=== PATIENT | male | born 1935 ===

== ENCOUNTER 2019-12-27 18:30 | Inpatient (IN) ==
[2019-12-27] MEDS ORDERED: Ondansetron 4 mg VIAL 2 MG/ML 2 ml VIAL IV PRN (20:43)
[2019-12-27] MEDS ORDERED: Enoxaparin 40 MG/0.4 ML SYR(*) SUBCUT SCH (21:00)
[2019-12-27] MEDS: oxyCODONE/Acetamin 5/325 mg TAB PO PRN (22:00)
[2019-12-27] MEDS: NS 0.9% 1000 ml BAG 1,000 ML IV SCH (23:16)
[2019-12-28] MEDS: oxyCODONE/Acetamin 5/325 mg TAB PO PRN (03:58)
[2019-12-28 05:46] LABS: Activated Partial Thrombo Time 34.4 seconds (26.0-38.0); INR 1.24 (0.82-1.09)
[2019-12-28 05:50] LABS: Hematocrit 36 % (42-52); Hemoglobin 12.1 g/dL (14.0-18.0); Mean Corpuscular HGB Conc 34 g/dL (31-36); Mean Corpuscular Hemoglobin 30 pg (27-31); Mean Corpuscular Volume 88 fL (80-94); Red Blood Count 4.07 10^6 /uL (4.18-5.48); Red Cell Distribution Width 14 % (10-15); White Blood Count 5.9 10^3/uL (3.5-10.8)
[2019-12-28 05:51] LABS: ABS Lymphocytes 0.5 10^3/ul (1.0-4.8); ABS Monocytes 0.7 10^3/ul (0-0.8); Eosinophil % 0.1 %; Lymphocyte % 8.5 %; Nucleated Red Blood Cells % 0.1
[2019-12-28 05:56] LABS: BUN/Creatinine Ratio 17.6 (8-20); Calcium 8.5 mg/dL (8.6-10.3); EGFR African American 63.1 (>60); EGFR Non-African American 52.1 (>60); Potassium 4.3 mmol/L (3.5-5.0)
[2019-12-28 08:50] LABS: Platelet Count 98 10^3/uL (150-450)
[2019-12-28] MEDS: Albuterol HFA INHALER 8 gm MDI INH PRN ×2 (09:13→23:31)
[2019-12-28] MEDS: NS 0.9% 1000 ml BAG 1,000 ML IV SCH (09:25)
[2019-12-28] MEDS: Albuterol 2.5mg/3 ml (0.083%) NEB.SOLN INH PRN (11:38)
[2019-12-28] MEDS ORDERED: methylPREDNISolone SOD 40 mg/ml 1 ml VIAL IV ONE (12:00)
[2019-12-28] MEDS ORDERED: Midazolam 2 mg/2 ml VIAL 1 mg/ml 2 ml VIAL (2 mg) ONE (15:56)
[2019-12-28] MEDS ORDERED: ceFAZolin 2 GM PREMIX in ORs 2 GM/50 ML BAG ONE (16:01)
[2019-12-28] MEDS ORDERED: fentaNYL 250 mcg/5 ml 50 MCG/ML 5 ml VIAL (250 MCG) ONE (16:20)
[2019-12-28] MEDS ORDERED: Phenylephrine IV 10 MG/ML 1 ml VIAL ONE (16:52)
[2019-12-28] MEDS ORDERED: fentaNYL 100 mcg/2 ml 50 MCG/ML VIAL ONE (17:39)
[2019-12-28] MEDS ORDERED: Naloxone 0.4 mg VIAL 0.4 mg/ml 1 ml VIAL IV PRN (18:02)
[2019-12-28] MEDS ORDERED: fentaNYL 100 mcg/2 ml 50 MCG/ML VIAL IV PRN (18:02)
[2019-12-28] MEDS: Mometasone/Formoter 200/5 MDI INH SCH (20:27)
[2019-12-29] MEDS: ceFAZolin 1 GM* X 3 DOSES POST-OP Q8H (AddVan) IVPB SCH ×3 (01:41→16:53)
[2019-12-29] MEDS: NS 0.9% 1000 ml BAG 1,000 ML IV SCH (05:51)
[2019-12-29 06:20] LABS: Hematocrit 27 % (42-52); Hemoglobin 9.5 g/dL (14.0-18.0); Mean Platelet Volume 8.8 fL (7.4-10.4); Platelet Count 84 10^3/uL (150-450)
[2019-12-29 06:32] LABS: BUN/Creatinine Ratio 17.9 (8-20); Calcium 7.9 mg/dL (8.6-10.3); EGFR African American 42.6 (>60); EGFR Non-African American 35.2 (>60)
[2019-12-29] MEDS: Mometasone/Formoter 200/5 MDI INH SCH ×2 (10:24→19:16)
[2019-12-29] MEDS ORDERED: Enoxaparin 30 MG/0.3 ML SYR(*) SUBCUT SCH (12:00)
[2019-12-29] MEDS ORDERED: Enoxaparin 40 MG/0.4 ML SYR(*) SUBCUT SCH (12:00)
[2019-12-29] MEDS: Albuterol 2.5mg/3 ml (0.083%) NEB.SOLN INH PRN (14:48)
[2019-12-29] MEDS: Senna TAB 8.6 mg TAB PO PRN (21:18)
[2019-12-29] MEDS: Polyethylene Glycol 3350 17 GM PACKET PO PRN (21:18)
[2019-12-30 05:47] LABS: BUN/Creatinine Ratio 22.1 (8-20); Calcium 8.2 mg/dL (8.6-10.3); EGFR African American 37.8 (>60); EGFR Non-African American 31.3 (>60); Potassium 4.7 mmol/L (3.5-5.0)
[2019-12-30 06:24] LABS: Hematocrit 22 % (42-52); Hemoglobin 7.3 g/dL (14.0-18.0); Mean Platelet Volume 9.6 fL (7.4-10.4); Platelet Count 75 10^3/uL (150-450)
[2019-12-30] MEDS: Polyethylene Glycol 3350 17 GM PACKET PO PRN (09:24)
[2019-12-30] MEDS: Mometasone/Formoter 200/5 MDI INH SCH ×3 (09:30→19:02)
[2019-12-30] MEDS: NS 0.9% 1000 ml BAG 1,000 ML IV SCH ×2 (09:30→19:25)
[2019-12-30] MEDS ORDERED: Dextrose 50% Syringe 50 ml 25 GM/50 ML SYRINGE IV PUSH PRN (14:50)
[2019-12-30 16:07] LABS: Hematocrit 21 % (42-52); Hemoglobin 7.1 g/dL (14.0-18.0)
[2019-12-30 17:48] LABS: Urine Appearance Cloudy; Urine Bilirubin Negative (Negative); Urine Blood 2+ (Negative); Urine Color Yellow; Urine Glucose 2+(150 mg/dL) (Negative); Urine Ketones Negative (Negative); Urine Nitrite Negative (Negative); Urine Protein Negative (Negative); Urine Specific Gravity 1.015 (1.010-1.030); Urine Urobilinogen Negative (Negative)
[2019-12-30 17:51] LABS: Urine Bacteria 1+ (Absent); Urine Red Blood Cell 3+(>10/hpf) (Absent); Urine White Blood Cell Trace(0-5/hpf) (Absent)
[2019-12-30] MEDS: Insulin LISPRO 100 units/ml(*) SUBCUT SCH ×2 (18:22→20:59)
[2019-12-30] MEDS: Senna TAB 8.6 mg TAB PO PRN (21:00)
[2019-12-31] MEDS: oxyCODONE/Acetamin 5/325 mg TAB PO PRN ×3 (03:46→18:53)
[2019-12-31 05:53] LABS: ABS Lymphocytes 0.4 10^3/ul (1.0-4.8); ABS Monocytes 0.9 10^3/ul (0-0.8); Hematocrit 19 % (42-52); Hemoglobin 6.6 g/dL (14.0-18.0); Lymphocyte % 5.1 %; Mean Corpuscular HGB Conc 35 g/dL (31-36); Mean Corpuscular Hemoglobin 31 pg (27-31); Mean Corpuscular Volume 90 fL (80-94); Red Cell Distribution Width 15 % (10-15); White Blood Count 7.1 10^3/uL (3.5-10.8)
[2019-12-31 06:01] LABS: BUN/Creatinine Ratio 27.3 (8-20); Blood Urea Nitrogen 42 mg/dL (6-24); CO2 Carbon Dioxide 31 mmol/L (22-32); Calcium 8.3 mg/dL (8.6-10.3); EGFR African American 52.3 (>60); EGFR Non-African American 43.3 (>60); Glucose 115 mg/dL (70-100); Potassium 4.6 mmol/L (3.5-5.0); Sodium 144 mmol/L (135-145)
[2019-12-31 06:02] LABS: Anion Gap 1 mmol/L (2-11); Chloride 112 mmol/L (101-111)
[2019-12-31 06:43] LABS: Mean Platelet Volume 8.7 fL (7.4-10.4); Platelet Count 92 10^3/uL (150-450)
[2019-12-31] MEDS: Mometasone/Formoter 200/5 MDI INH SCH ×2 (08:02→19:33)
[2019-12-31 09:46] LABS: % Iron Saturation 16 % (15-55); Iron 38 ug/dL (50-212); LDH 213 U/L (140-271); Total Iron Binding Capacity 231 mcg/dL (250-450); Transferrin 165 mg/dL (203-362)
[2019-12-31 10:08] LABS: Ferritin 175.3 ng/mL (24-336)
[2019-12-31] MEDS: Insulin LISPRO 100 units/ml(*) SUBCUT SCH ×5 (10:10→22:03)
[2019-12-31 10:12] LABS: Folate 14.58 ng/mL (>3.99)
[2019-12-31] MEDS: Albuterol HFA INHALER 8 gm MDI INH PRN (10:16)
[2019-12-31 16:14] LABS: Hematocrit 23 % (42-52); Hemoglobin 7.9 g/dL (14.0-18.0)
[2019-12-31] MEDS ORDERED: Furosemide 20 mg/2 ml IV VIAL IV SLOW PU ONE (18:11)
[2020-01-01] MEDS: oxyCODONE/Acetamin 5/325 mg TAB PO PRN ×2 (05:49→11:07)
[2020-01-01] MEDS: Senna TAB 8.6 mg TAB PO PRN (06:16)
[2020-01-01] MEDS: Morphine 2 MG/ML SYRINGE IV PRN (06:16)
[2020-01-01] MEDS: Polyethylene Glycol 3350 17 GM PACKET PO PRN (06:18)
[2020-01-01 06:36] LABS: Hematocrit 28 % (42-52); Hemoglobin 9.6 g/dL (14.0-18.0); Lymphocyte % 11.4 %; Mean Corpuscular HGB Conc 34 g/dL (31-36); Mean Corpuscular Hemoglobin 31 pg (27-31); Mean Corpuscular Volume 89 fL (80-94); Mean Platelet Volume 8.9 fL (7.4-10.4); Platelet Count 122 10^3/uL (150-450); Red Blood Count 3.12 10^6 /uL (4.18-5.48); Red Cell Distribution Width 15 % (10-15); White Blood Count 8.6 10^3/uL (3.5-10.8)
[2020-01-01 06:48] LABS: BUN/Creatinine Ratio 28.2 (8-20); EGFR African American 54.4 (>60); EGFR Non-African American 44.9 (>60); Potassium 4.1 mmol/L (3.5-5.0)
[2020-01-01] MEDS ORDERED: Cyanocobalamin INJ 1,000 MCG/ML VIAL 1 ML VIAL IM ONE (07:22)
[2020-01-01] MEDS: Mometasone/Formoter 200/5 MDI INH SCH ×2 (07:37→22:35)
[2020-01-01] MEDS: Albuterol HFA INHALER 8 gm MDI INH PRN (07:38)
[2020-01-01] MEDS: Insulin LISPRO 100 units/ml(*) SUBCUT SCH ×4 (08:00→21:20)
[2020-01-01] MEDS ORDERED: Perflutren Lipid Microsphere 3 ML VIAL ONE (09:28)
[2020-01-02 06:33] LABS: BUN/Creatinine Ratio 32.4 (8-20); Calcium 8.8 mg/dL (8.6-10.3); EGFR African American 58.9 (>60); EGFR Non-African American 48.7 (>60); Potassium 4.6 mmol/L (3.5-5.0)
[2020-01-02 07:16] LABS: Hematocrit 25 % (42-52); Hemoglobin 8.9 g/dL (14.0-18.0)
[2020-01-02] MEDS: Insulin LISPRO 100 units/ml(*) SUBCUT SCH ×4 (07:17→22:08)
[2020-01-02] MEDS: Mometasone/Formoter 200/5 MDI INH SCH ×2 (07:57→19:29)
[2020-01-02] MEDS: oxyCODONE/Acetamin 5/325 mg TAB PO PRN ×2 (07:58→11:50)
[2020-01-02] MEDS ORDERED: fentaNYL 100 mcg/2 ml 50 MCG/ML VIAL ONE (12:53)
[2020-01-02] MEDS ORDERED: Midazolam 10 mg/10 ml VIAL 1 mg/ml 10 ml VIAL (10 mg) ONE (12:54)
[2020-01-02] MEDS: Albuterol HFA INHALER 8 gm MDI INH PRN (19:30)
[2020-01-03] MEDS: oxyCODONE/Acetamin 5/325 mg TAB PO PRN ×2 (04:11→13:25)
[2020-01-03] MEDS: Insulin LISPRO 100 units/ml(*) SUBCUT SCH ×4 (07:50→21:23)
[2020-01-03] MEDS: Mometasone/Formoter 200/5 MDI INH SCH ×2 (07:51→19:45)
[2020-01-03] MEDS: Morphine 2 MG/ML SYRINGE IV PRN (07:59)
[2020-01-04] MEDS: oxyCODONE/Acetamin 5/325 mg TAB PO PRN ×2 (04:20→14:55)
[2020-01-04 05:26] LABS: ABS Eosinophils 0.1 10^3/ul (0-0.6); ABS Lymphocytes 0.4 10^3/ul (1.0-4.8); ABS Monocytes 1.1 10^3/ul (0-0.8); Hematocrit 28 % (42-52); Hemoglobin 9.4 g/dL (14.0-18.0); Mean Corpuscular HGB Conc 34 g/dL (31-36); Mean Corpuscular Hemoglobin 31 pg (27-31); Mean Corpuscular Volume 91 fL (80-94); Mean Platelet Volume 8.5 fL (7.4-10.4); Platelet Count 154 10^3/uL (150-450); Red Blood Count 3.06 10^6 /uL (4.18-5.48); Red Cell Distribution Width 14 % (10-15); White Blood Count 8.8 10^3/uL (3.5-10.8)
[2020-01-04 05:42] LABS: BUN/Creatinine Ratio 34.6 (8-20); Calcium 8.8 mg/dL (8.6-10.3); EGFR African American 65.4 (>60); Potassium 4.4 mmol/L (3.5-5.0)
[2020-01-04] MEDS: Insulin LISPRO 100 units/ml(*) SUBCUT SCH ×4 (07:47→22:02)
[2020-01-04] MEDS: Polyethylene Glycol 3350 17 GM PACKET PO PRN (08:26)
[2020-01-04] MEDS: Mometasone/Formoter 200/5 MDI INH SCH ×2 (08:27→20:42)
[2020-01-04] MEDS: Senna TAB 8.6 mg TAB PO PRN (08:41)
[2020-01-04] MEDS: Enoxaparin 30 MG/0.3 ML SYR(*) SUBCUT SCH (14:52)
[2020-01-04] MEDS ORDERED: Furosemide 20 mg/2 ml IV VIAL IV SLOW PU ONE (16:20)
[2020-01-04] MEDS: Albuterol/Ipratropium NEB.SOL (2.5/0.5 MG) 3 ML NEB.SOLN INH SCH ×2 (18:59→20:42)
[2020-01-05] MEDS: Albuterol/Ipratropium NEB.SOL (2.5/0.5 MG) 3 ML NEB.SOLN INH SCH ×4 (00:12→11:13)
[2020-01-05] MEDS: oxyCODONE/Acetamin 5/325 mg TAB PO PRN ×2 (05:50→10:00)
[2020-01-05 06:05] LABS: ABS Eosinophils 0.1 10^3/ul (0-0.6); ABS Lymphocytes 0.6 10^3/ul (1.0-4.8); ABS Monocytes 1.1 10^3/ul (0-0.8); Eosinophil % 0.8 %; Hematocrit 30 % (42-52); Hemoglobin 10.1 g/dL (14.0-18.0); Lymphocyte % 6.2 %; Mean Corpuscular HGB Conc 34 g/dL (31-36); Mean Corpuscular Hemoglobin 31 pg (27-31); Mean Corpuscular Volume 91 fL (80-94); Mean Platelet Volume 8.6 fL (7.4-10.4); Nucleated Red Blood Cells % 0.1; Platelet Count 175 10^3/uL (150-450); Red Blood Count 3.26 10^6 /uL (4.18-5.48); Red Cell Distribution Width 15 % (10-15); White Blood Count 9.9 10^3/uL (3.5-10.8)
[2020-01-05 06:22] LABS: Calcium 8.9 mg/dL (8.6-10.3); EGFR African American 44.9 (>60); EGFR Non-African American 37.1 (>60); Potassium 4.6 mmol/L (3.5-5.0)
[2020-01-05] MEDS: Mometasone/Formoter 200/5 MDI INH SCH ×2 (07:46→20:08)
[2020-01-05] MEDS: Insulin LISPRO 100 units/ml(*) SUBCUT SCH ×4 (08:45→21:33)
[2020-01-05 12:08] LABS: Magnesium 2.1 mg/dL (1.9-2.7)
[2020-01-05 12:19] LABS: Hematocrit 29 % (42-52); Hemoglobin 9.6 g/dL (14.0-18.0); Mean Corpuscular HGB Conc 33 g/dL (31-36); Mean Corpuscular Hemoglobin 30 pg (27-31); Mean Corpuscular Volume 92 fL (80-94); Mean Platelet Volume 8.6 fL (7.4-10.4); Platelet Count 184 10^3/uL (150-450); Red Blood Count 3.16 10^6 /uL (4.18-5.48); Red Cell Distribution Width 15 % (10-15); White Blood Count 15.7 10^3/uL (3.5-10.8)
[2020-01-05 13:23] LABS: ABS Basophils 0.1 10^3/ul (0-0.2); ABS Lymphocytes 0.3 10^3/ul (1.0-4.8); ABS Monocytes 1.3 10^3/ul (0-0.8); Eosinophil % 0.1 %; Lymphocyte % 2.1 %
[2020-01-05] MEDS ORDERED: NS 0.9% 1000 ml BAG 1,000 ML IV ONE (13:23)
[2020-01-05 14:21] LABS: Albumin 3.4 g/dL (3.2-5.2); Albumin/Globulin Ratio 1.5 (1-3); Globulin 2.3 g/dL (2-4); Indirect Bilirubin 2.4 mg/dL (0.3-1.0); Total Bilirubin 2.9 mg/dL (0.2-1.0); Total Protein 5.7 g/dL (6.4-8.9)
[2020-01-05] MEDS ORDERED: Albuterol/Ipratropium NEB.SOL (2.5/0.5 MG) 3 ML NEB.SOLN INH PRN (14:33)
[2020-01-05] MEDS: Enoxaparin 30 MG/0.3 ML SYR(*) SUBCUT SCH (15:22)
[2020-01-05] MEDS ORDERED: Heparin DRIP 25,000 UNITS(*) 25,000 UNITS/500 ML BAG IV SCH (15:30)
[2020-01-05] MEDS ORDERED: Piperacillin/Tazobac ADVAN(*) 3.375 GM in NS 0.9% 100 ml BAG 100 ML IVPB ONE (15:39)
[2020-01-05] MEDS ORDERED: Zosyn per Pharmacy NOTE FOLLOW UP SCH (16:00)
[2020-01-05] MEDS ORDERED: Heparin 5000 UNITS/ML VIAL(*) 1 ml vial IV SCH (16:00)
[2020-01-05 17:08] LABS: Urine Appearance Clear; Urine Bilirubin Negative (Negative); Urine Blood 1+ (Negative); Urine Color Yellow; Urine Glucose 1+(50 mg/dL) (Negative); Urine Ketones Negative (Negative); Urine Nitrite Negative (Negative); Urine Protein Negative (Negative); Urine Specific Gravity 1.014 (1.010-1.030); Urine Urobilinogen Positive (Negative)
[2020-01-05 17:18] LABS: Urine Bacteria Absent (Absent); Urine Red Blood Cell Trace(0-2/hpf) (Absent); Urine White Blood Cell Trace(0-5/hpf) (Absent)
[2020-01-05 18:19] LABS: EGFR African American 46.7 (>60); EGFR Non-African American 38.6 (>60)
[2020-01-05] MEDS ORDERED: Iodixanol (CONTRAST) 320 MG/ML 100 ML SDV IV ONE (18:43)
[2020-01-05] MEDS ORDERED: NS 0.9% 1000 ml BAG 1,000 ML IV SCH (19:00)
[2020-01-05] MEDS: Albuterol HFA INHALER 8 gm MDI INH PRN (20:08)
[2020-01-05 20:27] VITALS: BP 131/52
[2020-01-05] MEDS ORDERED: ZOSYN 3.375 GM Q8H per EXTENDED INFUSION IV SCH (21:00)
[2020-01-06] MEDS ORDERED: Enoxaparin 30 MG/0.3 ML SYR(*) SUBCUT SCH (15:00)
== END 2020-01-05 22:00 | disposition short-term general hospital (02) | DRG 480 ==
LOC: SSU 20:39 → MEDTELE 01-05 15:34
PROVIDERS: ADMIT Internal Medicine; ATTEND Internal Medicine

== ENCOUNTER 2020-12-09 17:02 | Inpatient (IN) ==
[2020-12-09] MEDS ORDERED: Albuterol/Ipratropium NEB.SOL (2.5/0.5 MG) 3 ML NEB.SOLN INH ONE (18:59)
[2020-12-09] MEDS ORDERED: Furosemide 20 mg/2 ml IV VIAL IV ONE (19:09)
[2020-12-09] MEDS ORDERED: Albuterol/Ipratropium NEB.SOL (2.5/0.5 MG) 3 ML NEB.SOLN INH PRN (19:17)
[2020-12-09] MEDS ORDERED: Albuterol HFA INHALER 8 gm MDI INH PRN (19:43)
[2020-12-09] MEDS ORDERED: Piperacillin/Tazobac ADVAN 3.375 GM in NS 0.9% 100 ml BAG 100 ML IV ONE (19:50)
[2020-12-09] MEDS ORDERED: Zosyn per Pharmacy NOTE FOLLOW UP SCH (20:00)
[2020-12-09] MEDS: Silver Sulfadiazine 1% 400gm JAR TOPICAL SCH (22:41)
[2020-12-09 22:59] LABS: Urine Appearance Clear; Urine Bilirubin Negative (Negative); Urine Blood Negative (Negative); Urine Color Yellow; Urine Glucose Negative (Negative); Urine Ketones Negative (Negative); Urine Nitrite Negative (Negative); Urine Protein 1+(30 mg/dL) (Negative); Urine Specific Gravity 1.044 (1.002-1.030); Urine Urobilinogen Negative (Negative)
[2020-12-09 23:14] LABS: Urine Bacteria Absent (Absent); Urine Red Blood Cell 1+(3-5/hpf) (Absent); Urine White Blood Cell Trace(0-5/hpf) (Absent)
[2020-12-09] MEDS: Heparin 5000 UNITS/ML 1 mL VIAL SUBCUT SCH (23:36)
[2020-12-10 01:45] LABS: ABS Lymphocytes 0.5 10^3/ul (1.0-4.8); ABS Monocytes 1.4 10^3/ul (0-0.8); Eosinophil % 0.4 %; Hematocrit 24 % (42-52); Hemoglobin 8.2 g/dL (14.0-18.0); Lymphocyte % 4.2 %; Mean Corpuscular HGB Conc 34 g/dL (31-36); Mean Corpuscular Hemoglobin 31 pg (27-31); Mean Corpuscular Volume 90 fL (80-94); Mean Platelet Volume 9.1 fL (7.4-10.4); Platelet Count 162 10^3/uL (150-450); Red Blood Count 2.66 10^6 /uL (4.18-5.48); Red Cell Distribution Width 15 % (10-15); White Blood Count 10.9 10^3/uL (3.5-10.8)
[2020-12-10 02:01] LABS: Albumin 2.6 g/dL (3.2-5.2); C Reactive Protein 204.32 mg/L (<8.01); EGFR African American 54.2 (>60); EGFR Non-African American 44.8 (>60); Globulin 2.5 g/dL (2-4); Potassium 4.1 mmol/L (3.5-5.0); Total Bilirubin 1.3 mg/dL (0.2-1.0); Total Protein 5.1 g/dL (6.4-8.9)
[2020-12-10] MEDS: ZOSYN 3.375 GM Q8H per EXTENDED INFUSION IV SCH ×2 (02:44→11:12)
[2020-12-10] MEDS: Heparin 5000 UNITS/ML 1 mL VIAL SUBCUT SCH ×2 (05:00→14:51)
[2020-12-10] MEDS ORDERED: SPIRIVA Respimat (tiotropium) 2.5 mcg/inh Inhaler INH SCH (09:00)
[2020-12-10] MEDS: Silver Sulfadiazine 1% 400gm JAR TOPICAL SCH (13:53)
[2020-12-10 17:24] VITALS: BP 114/47
== END 2020-12-10 18:23 | disposition short-term general hospital (02) | DRG 300 ==
LOC: MED 18:15 → MEDTELE 21:46
PROVIDERS: ADMIT Hospitalist; ATTEND Hospitalist